=== PATIENT | male | born 1945 | race Caucasian/White ===

== ENCOUNTER 2019-08-08 19:40 | Observation (INO) | payer MEDICARE, OTHER ==
[~2019-08-08] VITALS: Ht 177.8 cm; Wt 80.1 kg
[2019-08-08 20:12] LABS: HEMATOCRIT 36.1 % (42.0-52.0); HEMOGLOBIN 12.1 g/dL (13.5-18.0); MEAN CELL VOLUME 98 fl (78-100); MEAN CORPUSCULAR HEMOGLOBIN 33 pg (27-31); MEAN CORPUSCULAR HGB CONC 34 g/dL (33-37); MEAN PLATELET VOLUME 8.8 fl (7.4-10.4); PLATELET COUNT 173 K/mm3 (130-400); RED BLOOD COUNT 3.69 M/mm3 (4.20-5.60); RED CELL DISTRIBUTION WIDTH 12.2 % (11.5-14.5); WHITE BLOOD COUNT 10.2 K/mm3 (4.8-10.8)
[2019-08-08 20:20] LABS: ALBUMIN 3.9 g/dL (3.4-4.8); POTASSIUM 4.1 mmol/L (3.5-5.1)
[2019-08-08 20:21] LABS: CALCIUM 8.6 mg/dL (8.3-10.5)
[2019-08-08 20:23] LABS: LYMPHOCYTE 5 % (20-51); MONOCYTE 12 % (3-10); NEUTROPHILS 82 % (42-75); TOTAL PROTEIN 6.4 g/dL (6.2-8.1)
[2019-08-08 20:24] LABS: TOTAL BILIRUBIN 1.1 mg/dL (0.2-1.2)
[2019-08-08] MEDS ORDERED: ACETAMINOPHEN-H1 TA2 PO (20:35)
[2019-08-08] MEDS ORDERED: GABAPENTIN400 M2 PO (20:36)
[2019-08-08] MEDS ORDERED: ESZOPICLONE3 MG PO (20:36)
[2019-08-08] MEDS ORDERED: CYCLOBENZ5 MG PO (20:36)
[2019-08-08] MEDS ORDERED: OMEPRAZOLE40 MG PO (20:37)
[2019-08-08] MEDS ORDERED: SUMATRIPTAN SU100 MG PO (20:37)
[2019-08-08] MEDS ORDERED: ASPIRIN 81M81 MG/TA2 PO (20:38)
[2019-08-08] MEDS ORDERED: AMITRIPTYLINE100 M3 PO (20:38)
[2019-08-08] MEDS ORDERED: LISINOPRIL40 MG PO (20:38)
[2019-08-08 22:54] VITALS: BP 133/73
[2019-08-09 02:06] VITALS: BP 118/67
[2019-08-09 06:16] VITALS: BP 131/76
[2019-08-09 07:40] LABS: URINE WBC 0 /hpf (0-3)
[2019-08-09 07:47] LABS: URINE APPEARANCE CLEAR; URINE BILIRUBIN NEGATIVE (NEGATIVE); URINE BLOOD NEGATIVE (NEGATIVE); URINE COLOR YELLOW; URINE GLUCOSE NEGATIVE (NEGATIVE); URINE KETONE NEGATIVE (NEGATIVE); URINE LEUKOCYTE ESTERASE NEGATIVE (NEGATIVE); URINE NITRATE NEGATIVE (NEGATIVE); URINE PROTEIN(semi-quant) TRACE mg/dL (NEGATIVE); URINE UROBILINOGEN NORMAL (NORMAL)
[2019-08-09 10:06] VITALS: BP 143/75
[2019-08-09 14:03] VITALS: BP 92/55
[2019-08-09 17:39] VITALS: BP 105/63
[2019-08-09 22:00] VITALS: BP 102/63
[2019-08-10 02:00] VITALS: BP 102/62
[2019-08-10 05:54] VITALS: BP 106/62
[2019-08-10 10:06] VITALS: BP 114/68
[2019-08-10 14:12] VITALS: BP 145/74
[2019-08-10 14:43] LABS: ALBUMIN 3.4 g/dL (3.4-4.8); POTASSIUM 3.9 mmol/L (3.5-5.1)
[2019-08-10 14:44] LABS: CALCIUM 8.1 mg/dL (8.3-10.5)
[2019-08-10 14:47] LABS: TOTAL BILIRUBIN 0.3 mg/dL (0.2-1.2)
[2019-08-10 14:55] LABS: EOS # 0.2 (0.04-0.40); EOS % 2.4 % (0.0-4.0); HEMATOCRIT 34.4 % (42.0-52.0); HEMOGLOBIN 11.3 g/dL (13.5-18.0); LYMPH# 1.1 (1.50-4.00); MEAN CELL VOLUME 98 fl (78-100); MEAN CORPUSCULAR HEMOGLOBIN 32 pg (27-31); MEAN CORPUSCULAR HGB CONC 33 g/dL (33-37); MEAN PLATELET VOLUME 9.6 fl (7.4-10.4); MONO # 0.8 (0.20-0.80); PLATELET COUNT 187 K/mm3 (130-400); RED BLOOD COUNT 3.51 M/mm3 (4.20-5.60); RED CELL DISTRIBUTION WIDTH 12.1 % (11.5-14.5); WHITE BLOOD COUNT 7.1 K/mm3 (4.8-10.8)
[2019-08-10 14:59] LABS: URINE APPEARANCE CLEAR; URINE BILIRUBIN NEGATIVE (NEGATIVE); URINE BLOOD TRACE (NEGATIVE); URINE COLOR YELLOW; URINE GLUCOSE NEGATIVE (NEGATIVE); URINE KETONE NEGATIVE (NEGATIVE); URINE LEUKOCYTE ESTERASE NEGATIVE (NEGATIVE); URINE MUCUS PRESENT (NOT PRESENT); URINE NITRATE NEGATIVE (NEGATIVE); URINE PROTEIN(semi-quant) TRACE mg/dL (NEGATIVE); URINE UROBILINOGEN NORMAL (NORMAL)
[2019-08-10 17:21] VITALS: BP 110/69
[2019-08-10 21:33] VITALS: BP 106/67
[2019-08-11 02:46] VITALS: BP 112/66
[2019-08-11 06:15] VITALS: BP 127/72
[2019-08-11 10:04] VITALS: BP 116/69
[2019-08-11 14:00] VITALS: BP 125/68
[2019-08-11] MEDS ORDERED: FLOMAX0.4 MG PO (16:25)
[2019-08-11] MEDS ORDERED: HEALTHYLAX17 GM/Dose PO (16:26)
== END 2019-08-11 18:04 | disposition home or self-care (01) ==
LOC: ED 19:40 → MED/SURG 22:12
PROVIDERS: Nurse Practitioner Primary Care; ADMIT Physician Assistant
DX: M54.5 Low back pain (principal); W19.XXXA Unspecified fall, initial encounter; Y92.009 Unspecified place in unspecified non-institutional (private) residence as the place of occurrence of the external cause; R33.9 Retention of urine, unspecified; K59.00 Constipation, unspecified; R41.0 Disorientation, unspecified; I10 Essential (primary) hypertension; K21.9 Gastro-esophageal reflux disease without esophagitis; G47.00 Insomnia, unspecified; F17.220 Nicotine dependence, chewing tobacco, uncomplicated; G31.9 Degenerative disease of nervous system, unspecified; M51.36 Other intervertebral disc degeneration, lumbar region; Z98.1 Arthrodesis status; Z79.82 Long term (current) use of aspirin; Z79.899 Other long term (current) drug therapy; Z88.8 Allergy status to other drugs, medicaments and biological substances; Z88.5 Allergy status to narcotic agent
CPT/HCPCS: A4340; G0378; J1170; J1650; J2270; J2360; J2405; J7030